=== PATIENT | male | born 1950 | race Caucasian/White ===

== ENCOUNTER 2018-11-20 06:30 | Day surgery (SDC) | payer MEDICARE, OTHER ==
[~2018-11-20] VITALS: Ht 190.7 cm; Wt 116.5 kg
[2018-11-20 07:17] LABS: HEMOGLOBIN 17.7 g/dl (13.5-18.0); MEAN CELL VOLUME 95 fl (80.0-100.0); MEAN CORPUSCULAR HEMOGLOBIN 31 pg (27.0-31.0); MEAN CORPUSCULAR HGB CONC 33 g/dl (33.0-37.0); MEAN PLATELET VOLUME 10.6 fl (7.4-10.4); PLATELET COUNT 128 K/mm3 (130-400); RED BLOOD COUNT 5.75 M/mm3 (4.20-5.60)
[2018-11-20 07:18] LABS: CREATININE, serum 1.03 (0.66-1.25); POTASSIUM 4.7 mmol/L (3.4-5.0)
[2018-11-20 07:36] LABS: HEMATOCRIT 54.5 % (42.0-52.0)
[2018-11-20 07:55] LABS: INR 1.6 (0.8-3.0); PROTHROMBIN TIME 18.9 SECONDS (9.7-12.8)
[2018-11-20 08:09] VITALS: BP 127/91; PULSE 58; TEMP 97.8
[2018-11-20] MEDS ORDERED: PROAIR HFA0.09 MG/AC IH (08:13)
[2018-11-20] MEDS ORDERED: LIPITOR 80MG80 MG PO (08:13)
[2018-11-20] MEDS ORDERED: IMDUR 30MG30 MG/TAB PO (08:14)
[2018-11-20] MEDS ORDERED: CARDIZEM CD 24240 MG PO (08:14)
[2018-11-20] MEDS ORDERED: EPA FISH OIL1 SGL PO (08:14)
[2018-11-20] MEDS ORDERED: ZESTRIL 5MG5 MG PO (08:15)
[2018-11-20] MEDS ORDERED: KEPPRA XR500 MG PO (08:15)
[2018-11-20] MEDS ORDERED: INDERAL LA 60MG60 MG PO (08:16)
[2018-11-20] MEDS ORDERED: XARELTO20 MG PO (08:17)
[2018-11-20] MEDS ORDERED: PACERONE200 MG PO (09:15)
[2018-11-20] MEDS ORDERED: CARDIZEM120 MG PO (09:16)
[2018-11-20] MEDS ORDERED: NITROSTAT0.3 MG SL (09:18)
[2018-11-20] MEDS ORDERED: ASPIRIN E.C. 8181 MG PO (09:23)
[2018-11-20 09:24] VITALS: BP 116/80; PULSE 60
[2018-11-20 09:31] VITALS: BP 116/76; PULSE 56
[2018-11-20 09:45] VITALS: BP 123/81; PULSE 59
[2018-11-20 10:00] VITALS: BP 128/82; PULSE 64
--- NOTE | 2018-11-20 10:15 | NUR ---
Discharge instructions given to pt.pt verbalizes understanding.INT removed,catheter tip intact.Pt escorted out via wheelchair by this nurse.
[2018-11-20] MEDS ORDERED: CARDIZEM CD 12120 MG PO (11:08)
== END 2018-11-20 10:15 | disposition home or self-care (01) ==
LOC: COL.CAR 06:30
PROVIDERS: Internal Medicine Cardiovascular Disease
DX: I48.2 Chronic atrial fibrillation (principal); I25.10 Atherosclerotic heart disease of native coronary artery without angina pectoris; I10 Essential (primary) hypertension; J44.9 Chronic obstructive pulmonary disease, unspecified; Z88.1 Allergy status to other antibiotic agents; Z79.82 Long term (current) use of aspirin; Z79.899 Other long term (current) drug therapy; Z79.01 Long term (current) use of anticoagulants; Z85.71 Personal history of Hodgkin lymphoma; Z87.891 Personal history of nicotine dependence; Z86.73 Personal history of transient ischemic attack (TIA), and cerebral infarction without residual deficits; Z80.9 Family history of malignant neoplasm, unspecified; Z82.49 Family history of ischemic heart disease and other diseases of the circulatory system
CPT/HCPCS: J2704; J7030

== ENCOUNTER 2018-12-07 07:51 | Day surgery (SDC) | payer MEDICARE, OTHER ==
[2018-12-07] VITALS (9 sets, daily range): BP systolic 92–159; BP diastolic 42–98; PULSE 52–62; TEMP 98–98.1
[~2018-12-07] VITALS: Ht 190.5 cm; Wt 119.6 kg
[~2018-12-07 07:51] MED LIST: ASPIRIN E.C. 8181 MG PO; CARDIZEM CD 12120 MG PO; CARDIZEM CD 24240 MG PO; CARDIZEM120 MG PO; EPA FISH OIL1 SGL PO; IMDUR 30MG30 MG/TAB PO; INDERAL LA 60MG60 MG PO; KEPPRA XR500 MG PO; LIPITOR 80MG80 MG PO; NITROSTAT0.3 MG SL; PACERONE200 MG PO; PROAIR HFA0.09 MG/AC IH; XARELTO20 MG PO; ZESTRIL 5MG5 MG PO
[2018-12-07] MEDS ORDERED: CORDARONE200 MG/TAB PO (08:06)
--- NOTE | 2018-12-07 08:48 | NUR ---
22G PERIPHERAL IV INSERTED TO LEFT WRIST
[2018-12-07 08:50] LABS: HEMATOCRIT 51.3 % (42.0-52.0); HEMOGLOBIN 17.3 g/dl (13.5-18.0); MEAN CELL VOLUME 94 fl (80.0-100.0); MEAN CORPUSCULAR HEMOGLOBIN 32 pg (27.0-31.0); MEAN CORPUSCULAR HGB CONC 34 g/dl (33.0-37.0); MEAN PLATELET VOLUME 10.4 fl (7.4-10.4); PLATELET COUNT 130 K/mm3 (130-400); RED BLOOD COUNT 5.47 M/mm3 (4.20-5.60); REDCELL DISTRIBUTION WIDTH-CV 14.3 % (11.5-14.5)
[2018-12-07 08:55] LABS: INR 1.6 (0.8-3.0); PROTHROMBIN TIME 18.9 SECONDS (9.7-12.8)
--- NOTE | 2018-12-07 09:00 | NUR ---
SEDATION PERFORMED BY ANESTHESIA, RECOVERY PERFORMED BY GWENDOLYN RENO, SENIOR PRODUCTION MANAGER NURSE.
[2018-12-07 09:03] LABS: CALCIUM 8.3 mg/dL (8.4-10.2); CREATININE, serum 0.93 (0.66-1.25); POTASSIUM 4.8 mmol/L (3.4-5.0)
--- NOTE | 2018-12-07 09:31 | NUR ---
CARDIOVERSION COMPLETE. PT NOW IN SB. PT REMAINS LETHARGIC. PT'S O2 SAT 94% ON 6LOM, BP 97/61
--- NOTE | 2018-12-07 09:37 | NUR ---
PT NOW AWAKE, ALERT, AND ORIENTED. PT DENIES ANY PAIN, SOB, DIZZINESS, ETC. PT NOW ON ROOM AIR, O2 SAT 94%, PULSE 54, BP 92/61.
--- NOTE | 2018-12-07 09:52 | NUR ---
Pt here for elective cardioversion with Dr. Monk and sedation per SANFORD Springer with [facility]. Time out performed at 0913 with all staff present. See anesthesia record for sedation given and intra procedural assessments. Post anesthesia care monitoring start time of 924. Pt did receive a total of 3 synchronized shocks of 200 joules and this was able to convert the patient back to sinus rhythm. These shocks were performed at 0917, 0918 and 0920.
--- NOTE | 2018-12-07 09:57 | NUR ---
Pt awake and alert. RASS=0. Report to Radha RN who assumes care of pt at this time.
--- NOTE | 2018-12-07 10:16 | NUR ---
DISCHARGE INSTRUCTIONS REVIEWED WITH PATIENT AND FAMILY. IV DISCONTINUED. PT AMBULATED TO EXIT. FAMILY AT PT'S SIDE.
== END 2018-12-07 10:20 | disposition home or self-care (01) ==
LOC: COL.CAR 07:51
PROVIDERS: Internal Medicine Cardiovascular Disease
DX: I48.2 Chronic atrial fibrillation (principal); I10 Essential (primary) hypertension; I25.10 Atherosclerotic heart disease of native coronary artery without angina pectoris; I77.811 Abdominal aortic ectasia; J44.9 Chronic obstructive pulmonary disease, unspecified; Z86.73 Personal history of transient ischemic attack (TIA), and cerebral infarction without residual deficits; Z79.01 Long term (current) use of anticoagulants; Z85.71 Personal history of Hodgkin lymphoma; Z88.1 Allergy status to other antibiotic agents; Z79.82 Long term (current) use of aspirin; Z87.891 Personal history of nicotine dependence; Z80.9 Family history of malignant neoplasm, unspecified
CPT/HCPCS: J2704; J7120